=== PATIENT | female | born 1960 | race Two or more races ===

== ENCOUNTER 2019-08-02 05:55 | Day surgery (SDC) | payer OTHER ==
--- NOTE | 2019-07-30 12:49 | HP ---
PATIENT: CARROL SANABRIA MEDICAL RECORD: [id number] ACCOUNT: [id number] [facility]ATION:[facility] : 60 ADMISSION DATE: 08/02/19 PCP: HISTORY AND PHYSICAL EXAMINATION PREOPERATIVE HISTORY AND PHYSICAL HISTORY: Ms. 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 PAST MEDICAL HISTORY: Includes reflux. PAST SURGICAL HISTORY: Includes removal of a palate lesion years ago. She does not know what it was, was in the same place. PHYSICAL EXAMINATION: GENERAL: Healthy-appearing. FACE: Normal, symmetric, no lesions. EYES: Sclerae and conjunctivae are normal. EARS: Canals and TMs normal. NOSE: No mass, polyps or drainage. ORAL CAVITY AND OROPHARYNX: She has a palate mass, right hard palate posteriorly. No mucosal changes. Looking at the tonsil, she has large white tonsils bilaterally and chronic caseous tonsillitis. NECK: No masses, no adenopathy. CHEST: Clear. CARDIOVASCULAR: Regular rate and rhythm. No murmur. EXTREMITIES: Normal. IMPRESSION: Chronic caseous tonsillitis and palate mass could be related to a dental infection or dental mucosa is hard to say. PLAN: Tonsillectomy and excision or may be incision and drainage of palate mass. TRANSINT:[id number] Voice Confirmation ID: [id number] DOCUMENT ID: [id number] GERRI TAVAREZ MD at 1249 CC: [id number] DICTATION DATE: 07/29/19 1114 [employer]OY[employer]EF[employer] ATTORNEY: 07/29/19 [id number] [place] [address]
[2019-07-30 17:11] LABS: HEMOGLOBIN 13.1 g/dL (12-16); MCH 30.2 pg (26.0-34.0); MCHC 32.8 g/dL (31.0-37.0); MCV 92.2 fL (80.0-100.0); MEAN PLATELET VOLUME 9.4 fL (7.4-10.4); RBC 4.34 10x6/uL (4.00-5.40); RDW 13.7 % (11.5-14.5); WBC 6.1 10x3/uL (4.8-10.8)
[~2019-08-02] VITALS: Ht 149.9 cm; Wt 62.1 kg
--- NOTE | ~2019-08-02 | OP ---
PATIENT NAME: CARROL SANABRIA MEDICAL RECORD: [id number] :60 [facility] DATE: SURGEON: GERRI LOYA MD DATE OF OPERATION: 08/02/2019 PREOPERATIVE DIAGNOSES: Chronic tonsillitis and right hard palate lesion. POSTOPERATIVE DIAGNOSES: Chronic tonsillitis and right hard palate lesion. PROCEDURE: Tonsillectomy and excision of the palate lesion. SURGEON: Gerri Loya MD ANESTHESIA: General orotracheal. BLOOD LOSS: Less than 5 cc. SPECIMENS: Right and left tonsil and tissue from the right hard palate. COMPLICATIONS: None. DISPOSITION: Recovery, stable. FINDINGS: Chronically infected tonsils. The palate was soft with granulation tissue, but no purulence. COMPLICATIONS: None. DISPOSITION: Recovery, stable. DESCRIPTION OF PROCEDURE: She was brought to the operating room and placed in supine position, sedated and intubated by anesthesia. The eyes were taped. Table was turned 90 degrees. Head drape was applied, and she was positioned for tonsillectomy. Using a headlight, a Fernando-Ayden mouth gag was carefully inserted and elevated on a towel on the chest. The palate was examined and palpated. It was normal. A red rubber catheter was placed to the right side of the nose and the pharynx was grasped with tonsil clamp to retract the soft palate. Using a mirror, the nasopharynx was examined and completely normal. The red rubber catheter was let down and removed. The right tonsil was grasped at the superior pole with a straight Allis clamp. Spatula-tip cautery on a setting of 8 was used to dissect out the tonsil along its capsule, preserving the anterior and posterior tonsillar pillar. The left tonsil was removed in the same fashion. Then, both sides of the nose irrigated with saline. The pharynx was suctioned. Tonsillar fossae were agitated. Suction cautery on a setting of 18 was used to control minimal oozing on both sides. With the field completely clean and dry, the palate was examined. Soft lesion on the posterior right hard palate with normal overlying mucosa. The area around there was injected with less than 0.5 cc of 1% lidocaine with 1:100,000 epinephrine along 27-gauge needle. Then, an incision was made. A granular inflamed tissue extruded. A curette was used to scoop out this tissue. This was sent for path and multiple cultures. The entire area was curettaged until it was completely normal tissue. Did not appear to be really a bony lesion there at all, just the soft possibly old abscess or something of that nature. It cleaned completely, irrigated out, scraped out with a curette over and over and then was closed with interrupted 2-0 Vicryl. Fernando-Ayden mouth gag was let down and removed. She was awakened, OPERATIVE REPORT [id number] CARROL SANABRIA extubated, and transported to recovery in good condition. No complications. TRANSINT:[id number] Voice Confirmation ID: [id number] DOCUMENT ID: [id number] GERRI LOYA MD CC: [id number] DICTATION DATE: 08/02/19928 [employer]BAT SYSTEMS ENGINEER: 08/02/19 1215 [facility] 08/02/19 [facility] [address] [place] [address]
[2019-08-02] MEDS ORDERED: URSO250 MG PO (06:21)
[2019-08-02] MEDS ORDERED: OMEPRAZOLE40 MG PO (06:22)
[2019-08-02] MEDS ORDERED: BACLOFEN20 M1 PO (06:23)
[2019-08-02] MEDS ORDERED: APRISO0.375 GM PO (06:24)
[2019-08-02] MEDS ORDERED: LEXAPRO10 MG PO (06:24)
[2019-08-02] MEDS ORDERED: SALAGEN5 MG PO (06:25)
[2019-08-02 06:26] VITALS: Ht 149.9 cm; Wt 62.1 kg
--- NOTE | 2019-08-02 09:37 | NUR ---
0937 PATIENT AROUSABLE OPA DISCONTINUED
--- NOTE | 2019-08-02 10:14 | NUR ---
0955 WARM BLANKET SUPPLIED
== END 2019-08-02 11:45 | disposition home or self-care (01) ==
LOC: D.OPS 05:55 → D.PAN 07:45 → D.OPS 08:00
PROVIDERS: ATTEND Otolaryngology
DX: J35.01 Chronic tonsillitis (principal); K13.79 Other lesions of oral mucosa

== ENCOUNTER → 2019-10-21 08:53 | Outpatient (CLI) | payer OTHER ==
[2019-08-02 06:26] VITALS: BMI 27.7
[~2019-10-21 08:53] MED LIST: APRISO0.375 GM PO; BACLOFEN20 M1 PO; LEXAPRO10 MG PO; OMEPRAZOLE40 MG PO; SALAGEN5 MG PO; URSO250 MG PO
== END | disposition home or self-care (01) ==
LOC: D.CT 08:53
PROVIDERS: ATTEND Surgery
DX: R10.32 Left lower quadrant pain (principal)